=== PATIENT | male | born 1990 ===

== ENCOUNTER → 2017-05-21 | Outpatient (REF) | payer OTHER, BC ==
[~2017-05-21] MED LIST: DEXL60CA6 PO
[2017-05-21 13:42] LABS: PLATELET COUNT, AUTOMATED 178 K/uL (150-450)
== END ==
LOC: ZZSENDIN 13:28
PROVIDERS: ATTEND Physician Assistant
DX: R53.83 Other fatigue (principal); R53.81 Other malaise; E86.0 Dehydration
CPT/HCPCS: 82040; 82247; 82310; 82374; 82435; 82565; 82947; 84075; 84132; 84155; 84295; 84450; 84460; 84520; 85025